=== PATIENT | male | born 1960 | race Caucasian/White ===

== ENCOUNTER 2018-06-18 14:00 | Outpatient (RCR) | payer MEDICAID, SELFPAY ==
--- NOTE | 2018-06-14 13:00 | PTTR_ITS ---
DATE: 06/14/18 SUBJECTIVE: Patient reports he is able to sleep better. His shoulders are still bothering him but have been doing better. The right is still worse than the left. States he went for a hike on Monday with no difficulty. OBJECTIVE: Therapeutic procedures ([id number]). [X] See flow sheet: Continued progressing scapular stabilization, rotator cuff, and arm strengthening program. [X] Provided skilled instruction in proper exercise performance: for proper body mechanics and postural awareness. [X] Provided skilled manual cues to facilitate proper muscle recruitment and/or movement pattern: Plan to give patient progression of home exercise for program for him to continue with at next session. Patient is leaving for vacation on June 20. Will have follow up appointment for reassessment after patient returns from vacation. Cryotherapy x 10 minutes post session to bilateral shoulders in sitting. Direct treatment time: 45 minutes Total treatment time: 55 minutes Meggan Garcia, SPT EMELIA Donnelly.
--- NOTE | 2018-06-18 14:00 | PTTR_ITS ---
DATE: 06/18/18 SUBJECTIVE: Patient reports he had some difficulty sleeping last night. He thinks he aggravated his shoulders carrying some heavy boxes yesterday. He is leaving for vacation to [place] tomorrow. OBJECTIVE: Therapeutic procedures ([id number]). [X] HEP review: Progressed HEP to include scapular stabilization and bilateral rotator cuff strengthening. Patient given green and orange theratubes for exercises. Reviewed all exercises with patient to ensure proper technique. Patient demonstrated understanding. [X] See flow sheet: Continued with scapular stabilization and rotator cuff strengthening program. [X] Provided skilled instruction in proper exercise performance: [X] Provided skilled manual cues to facilitate proper muscle recruitment and/or movement pattern: Plan to follow up in 2 weeks for reassessment and progression to independent self managment program. Cryotherapy x 10 minutes to bilateral shoulders post session. Direct treatment time: 45 minutes Total treatment time: 55 minutes Meggan Garcia, SPT Aislinn Valdivia, MPT
== END 2018-07-13 23:59 | disposition home or self-care (01) ==
LOC: PT 14:00
PROVIDERS: PCP Family Medicine; Referring Provider Specialist; Visit Provider Specialist
DX: M75.21 Bicipital tendinitis, right shoulder (principal); M75.22 Bicipital tendinitis, left shoulder; M75.101 Unspecified rotator cuff tear or rupture of right shoulder, not specified as traumatic
CPT/HCPCS: 97110

== ENCOUNTER 2018-09-17 18:40 | Outpatient (REF) | payer MEDICAID, SELFPAY ==
[2018-09-17 20:40] LABS: Cholesterol 194 mg/dL (50-200); Glucose 87 mg/dL (70-100); HDL Cholesterol 59 mg/dL (40-60); LDL CHOLESTEROL 123 mg/dL (<100); Triglyceride 54 mg/dL (30-150)
[2018-09-19 12:50] LABS: Hepatitis C Ab w Rflx HCV PCR Negative (NEGAT)
== END 2018-09-17 19:00 ==
LOC: NCHCN 18:40
PROVIDERS: PCP Family Medicine; Visit Provider Family Medicine
DX: Z13.1 Encounter for screening for diabetes mellitus (principal); Z13.220 Encounter for screening for lipoid disorders; Z11.59 Encounter for screening for other viral diseases; Z00.00 Encounter for general adult medical examination without abnormal findings
CPT/HCPCS: 80061; 82947; 83721; 86803

== ENCOUNTER 2018-11-13 15:31 | Emergency (ER) | payer MEDICAID, SELFPAY ==
[2018-11-13 15:34] VITALS: BP 100/78; PULSE 82; RESP 16; TEMP 36.5; O2SAT 98
--- NOTE | 2018-11-13 16:09 | W.ED.GENAD ---
Discharge Plan Disposition Patient Disposition: HOME Condition: Fair Discharge Details Chief Complaint: RespSymp Clinical Impression: Pneumonia, URI (upper respiratory infection) Primary Care Provider: Williams Aguayo ED Provider: Benita Silverman Home Meds and New Rx's Prescriptions: New azithromycin 250 mg tablet See Rx Instructions .ROUTE .COMPLEX Qty: 6 RF: 0 benzonatate [Tessalon Perles] 100 mg capsule 100 mg PO TID PRN (Reason: cough) Qty: 10 RF: 0 No Action No Known Home Meds RF: 0 Discharge Instructions Instructions: Pneumonia (ED) Additional Instructions: Encourage hydration. Take azithromycin as prescribed. You may use Tessalon Perles as prescribed to help with symptomatic management. Albuterol inhaler with spacer as advised by nursing staff every 4-6 hours as needed for develop wheezing or shortness of breath. Please keep upcoming appointment with primary care for reevaluation. If you develop new or worsening symptoms seek care urgently once again. Referrals: Williams Aguayo [Primary Care Provider] - Discharge Data Discharge Date/Time-TO BE ENTERED AT DEPARTURE: 11/13/18 17:40 Medical Decision Making Patient is a 58 year old male presentig today with c/c of cough x 2 weeks. States cough has been dry but that he feels wheezy and like there is junk in there. States he has had subjective fevers at home but none over the past 24 hours. Feels that cough has been worsening over the past few days and endorses SOB, primarily with cough. States that he initially had diarhea but that this has since subsided, has not had any over the past week. No nasea, vomiting or abdominal pain. Endorses sore throat but associates with cough. On exam, patient appears in no acute distress. He has faint expiratory wheezing in lower albert. Has crackles in RLL. Will obtain cxr and give albuterol inhaler. Discused plan with patient, he is in agreement iwht this plan. O2 98% on RA, no respiratory distress. HR 82, patien tis afebrile. Chest x-ray reviewed by radiologist. No airspace consolidation, pleural effusion or pneumothorax. Cardiomediastinal silhouette is unremarkable. Overall impression is no acute finding Discussed the findings with the patient. Has a symptoms have been worsening over the past 2 weeks and I do appreciate some consolidation in the right lower lobe, I am concerned for possible developing pneumonia. Will treat with azithromycin. Encouraged hydration. Also prescribed Tessalon Perles to help with symptomatic management. Patient was given an inhaler and spacer while here and was instructed in how to use this by nursing staff. We discussed new/worsening symptoms when to seek care urgently once again. Advise follow-up with primary care in 1 week, patient does have an appointment with them next week. All his questions and concerns were addressed and he is in agreement this plan HPI General Mode of arrival: ambulatory. Date/Time Provider Initiated Documentation: 11/13/18 15:52. Limitations to Documentation: no limitations. Information obtained by: patient. History of Present Illness 58 year old M presents to the emergency department with the chief complaint of cough, described as moderate, Patient started experiencing this week(s) (2) and it has been constant. No relieving factors improve symptom(s), No exacerbating factors reported . Patient notes cough, fever/chills and shortness of breath; denies chest pain, headaches, loss of appetite, nausea/vomiting, rash and syncope. Patient did receive the following treatments prior to arrival, none Related Data Home Medications Medication Instructions Recorded Confirmed Unknown [No Known Home Meds] 08/15/13 08/15/13 azithromycin See Rx Instructions .ROUTE 11/13/18 .COMPLEX #6 tab benzonatate [Tessalon Perles] 100 mg PO TID PRN #10 cap 11/13/18 Previous Rx's Medication Instructions Recorded azithromycin See Rx Instructions .ROUTE 11/13/18 .COMPLEX #6 tab benzonatate [Tessalon Perles] 100 mg PO TID PRN #10 cap 11/13/18 General Stated Complaint: RespSymp JUDITH: 4 Review of Systems Constitutional Reports as per HPI and Denies headache(s) Eyes Reports as per HPI, Denies eye discharge and Denies irritation ENT Reports as per HPI, Denies ear discharge, Denies otalgia, Denies headache(s), Reports nasal congestion, Reports nasal discharge, Denies sinus pain, Denies sinus pressure and Reports sore throat Cardiovascular Reports as per HPI, Denies chest pain, Reports dyspnea (with cough) and Denies dyspnea on exertion Respiratory Reports as per HPI, Reports cough, Denies pain on inspiration, Denies pain with cough, Reports dyspnea (with cough), Denies dyspnea on exertion, Denies stridor and Reports wheezing Gastrointestinal Reports as per HPI, Denies abdominal pain, Denies change in bowel habits, Denies nausea and Denies vomiting Integumentary/Breasts Reports as per HPI and Denies rash Neurologic Denies headache(s) Allergic/Immunologic Reports wheezing [facility], [facility] Social History Smoking/Tobacco Use Status: Never Exam Const General: cooperative, healthy appearing, comfortable, no acute distress, well developed and well groomed Nutritional Appearance: average body habitus and well nourished Orientation: alert and awake [facility] Head: normal to inspection, normocephalic and atraumatic Ears: hearing grossly normal bilaterally, external ears normal and TM's normal bilaterally General nose exam: external nose normal and nares normal Face and sinus: normal facial exam, sinuses nontender and face symmetric Mouth: oral mucosae normal, lip normal, tongue normal, oropharynx normal and moist mucous membranes Teeth and gingiva: dentition normal Throat: posterior oropharynx normal, tonsils normal and uvula midline Eyes General: appearance normal, both eyes and all related structures Neck Neck: normal visual inspection, full ROM, no lymphadenopathy and no meningeal signs Resp Effort & Inspection: normal respiratory effort, able to speak in complete sentences and no respiratory distress Auscultation: crackles on the right in the lower lung albert, no rales, no rhonchi and wheezes expiratory wheezes and scattered wheezes Cardio Rate: regular rate Rhythm: regular rhythm Heart Sounds: S1 normal and S2 normal Skin General skin exam: no rashes or lesions noted Neuro General: alert and awake Cognition: normal cognition Speech: speech normal Gait: normal gait Psych Appearance: grossly normal and well kempt Mental Status: mental status grossly normal Speech and Movement: speech and movement normal Course Vital Signs Temperature 36.5 C 11/13/18 15:34 Pulse 82 11/13/18 15:34 Respiratory Rate 16 11/13/18 15:34 Blood Pressure 100/78 11/13/18 15:34 Pulse Oximetry 98 11/13/18 15:34 Temperature 36.5 C 11/13/18 15:34 Temperature Source Skin 11/13/18 15:34 Pulse 82 11/13/18 15:34 Respiratory Rate 16 11/13/18 15:34 Blood Pressure 100/78 01/01/19 15:34 Blood Pressure Position Sitting 11/13/18 15:34 Pulse Oximetry 98 11/13/18 15:34 Oxygen Delivery Method Room Air 11/13/18 15:34 Oxygen Flow Rate 0 11/13/18 15:34
--- NOTE | 2018-11-13 16:17 | DI.RAD_ITS ---
SYMPTOM/DIAGNOSIS: COUGH, JUNKY IN RLL,FEVER, CHILLS PA AND LATERAL CHEST: Comparison is made with 05/19/17. The heart size is normal. The aorta is normal in diameter and mildly tortuous. The lungs are clear. IMPRESSION: Negative chest xray.
--- NOTE | 2018-11-13 16:21 | ED.GENADUL_ITS ---
Discharge Plan Disposition Patient Disposition: HOME Condition: Fair Discharge Details Chief Complaint: RespSymp Clinical Impression: Pneumonia, URI (upper respiratory infection) Primary Care Provider: Williams Aguayo ED Provider: Benita Silverman Home Meds and New Rx's Prescriptions: New azithromycin 250 mg tablet See Rx Instructions .ROUTE .COMPLEX Qty: 6 RF: 0 benzonatate [Tessalon Perles] 100 mg capsule 100 mg PO TID PRN (Reason: cough) Qty: 10 RF: 0 No Action No Known Home Meds RF: 0 Discharge Instructions Instructions: Pneumonia (ED) Additional Instructions: Encourage hydration. Take azithromycin as prescribed. You may use Tessalon Perles as prescribed to help with symptomatic management. Albuterol inhaler with spacer as advised by nursing staff every 4-6 hours as needed for develop wheezing or shortness of breath. Please keep upcoming appointment with primary care for reevaluation. If you develop new or worsening symptoms seek care urgently once again. Referrals: Williams Aguayo [Primary Care Provider] - Discharge Data Discharge Date/Time-TO BE ENTERED AT DEPARTURE: 11/13/18 17:40 Medical Decision Making Patient is a 58 year old male presentig today with c/c of cough x 2 weeks. States cough has been dry but that he feels wheezy and like there is junk in there. States he has had subjective fevers at home but none over the past 24 hours. Feels that cough has been worsening over the past few days and endorses SOB, primarily with cough. States that he initially had diarhea but that this has since subsided, has not had any over the past week. No nasea, vomiting or a bdominal pain. Endorses sore throat but associates with cough. On exam, patient appears in no acute distress. He has faint expiratory wheezing in lower albert. Has crackles in RLL. Will obtain cxr and give albuterol inhaler. Discused plan with patient, he is in agreement iwht this plan. O2 98% on RA, no respiratory distress. HR 82, patien tis afebrile. Chest x-ray reviewed by radiologist. No airspace consolidation, pleural effusion or pneumothorax. Cardiomediastinal silhouette is unremarkable. Overall impression is no acute finding Discussed the findings with the patient. Has a symptoms have been worsening over the past 2 weeks and I do appreciate some consolidation in the right lower lobe, I am concerned for possible developing pneumonia. Will treat with azithromycin. Encouraged hydration. Also prescribed Tessalon Perles to help with symptomatic management. Patient was given an inhaler and spacer while here and was instructed in how to use this by nursing staff. We discussed new/worsening symptoms when to seek care urgently once again. Advise follow-up with primary care in 1 week, patient does have an appointment with them next week. All his questions and concerns were addressed and he is in agreement this plan HPI General Mode of arrival: ambulatory . Date/Time Provider Initiated Documentation: 11/13/18 15:52 . Limitations to Documentation: no limitations . Information obtained by: patient . History of Present Illness 58 year old M presents to the emergency department with the chief complaint of cough, described as moderate, Patient started experiencing this week(s) (2) and it has been constant. No relieving factors improve symptom(s), No exacerbating factors reported . Patient notes cough, fever/chills and shortness of breath; denies chest pain, headaches, loss of appetite, nausea/vomiting, rash and syncope. Patient did receive the following treatments prior to arrival, none Related Data Home Medications Medication Instructions Recorded Confirmed Unknown [No Known Home Meds] 08/15/13 08/15/13 azithromycin See Rx Instructions .ROUTE 11/13/18 .COMPLEX #6 tab benzonatate [Tessalon Perles] 100 mg PO TID PRN #10 cap 11/13/18 Previous Rx's Medication Instructions Recorded azithromycin See Rx Instructions .ROUTE 11/13/18 .COMPLEX #6 tab benzonatate [Tessalon Perles] 100 mg PO TID PRN #10 cap 11/13/18 General Stated Complaint: RespSymp JUDITH: 4 Review of Systems Constitutional Reports as per HPI and Denies headache(s) Eyes Reports as per HPI, Denies eye discharge and Denies irritation ENT Reports as per HPI, Denies ear discharge, Denies otalgia, Denies headache(s), Reports nasal congestion, Reports nasal discharge, Denies sinus pain, Denies sinus pressure and Reports sore throat Cardiovascular Reports as per HPI, Denies chest pain, Reports dyspnea (with cough) and Denies dyspnea on exertion Respiratory Reports as per HPI, Reports cough, Denies pain on inspiration, Denies pain with cough, Reports dyspnea (with cough), Denies dyspnea on exertion, Denies stridor and Reports wheezing Gastrointestinal Reports as per HPI, Denies abdominal pain, Denies change in bowel habits, Denies nausea and Denies vomiting Integumentary/Breasts Reports as per HPI and Denies rash Neurologic Denies headache(s) Allergic/Immunologic Reports wheezing [facility] Social History Smoking/Tobacco Use Status: Never Exam Const General: cooperative, healthy appearing, comfortable, no acute distress, well developed and well groomed Nutritional Appearance: average body habitus and well nourished Orientation: alert and awake [facility] Head: normal to inspection, normocephalic and atraumatic Ears: hearing grossly normal bilaterally, external ears normal and TM's normal bilaterally General nose exam: external nose normal and nares normal Face and sinus: normal facial exam, sinuses nontender and face symmetric Mouth: oral mucosae normal, lip normal, tongue normal, oropharynx normal and moist mucous membranes Teeth and gingiva: dentition normal Throat: posterior oropharynx normal, tonsils normal and uvula midline Eyes General: appearance normal, both eyes and all related structures Neck Neck: normal visual inspection, full ROM, no lymphadenopathy and no meningeal signs Resp Effort & Inspection: normal respiratory effort, able to speak in complete sentences and no respiratory distress Auscultation: crackles on the right in the lower lung albert, no rales, no rhonchi and wheezes expiratory wheezes and scattered wheezes Cardio Rate: regular rate Rhythm: regular rhythm Heart Sounds: S1 normal and S2 normal Skin General skin exam: no rashes or lesions noted Neuro General: alert and awake Cognition: normal cognition Speech: speech normal Gait: normal gait Psych Appearance: grossly normal and well kempt Mental Status: mental status grossly normal Speech and Movement: speech and movement normal Course Vital Signs Temperature 36.5 C 11/13/18 15:34 Pulse 82 11/13/18 15:34 Respiratory Rate 16 11/13/18 15:34 Blood Pressure 100/78 11/13/18 15:34 Pulse Oximetry 98 11/13/18 15:34 Temperature 36.5 C 11/13/18 15:34 Temperature Source Skin 11/13/18 15:34 Pulse 82 11/13/18 15:34 Respiratory Rate 16 11/13/18 15:34 Blood Pressure 100/78 11/13/18 15:34 Blood Pressure Position Sitting 11/13/18 15:34 Pulse Oximetry 98 11/13/18 15:34 Oxygen Delivery Method Room Air 11/13/18 15:34 Oxygen Flow Rate 0 11/13/18 15:34
[2018-11-13] MEDS: Inhaler, Assist Device 1 EACH MC (16:28)
[2018-11-13] MEDS: Albuterol HFA 8 GM 60 PUFF INH IH (16:28)
--- NOTE | 2018-11-13 16:58 | DI.VRAD_ITS ---
EXAM: XR Chest, 2 Views EXAM DATE/TIME: 11/13/2018 4:18 PM CLINICAL HISTORY: 58 years old, male; Signs and symptoms; Other: Cough, junky in rll TECHNIQUE: XR of the chest, 2 views. COMPARISON: CR CHEST 2 VIEWS PA,LAT 05/19/2017 12:58 PM FINDINGS: No airspace consolidation, pleural effusion or pneumothorax. The cardiomediastinal silhouette is unremarkable. IMPRESSION: No acute findings. Dictated and Authenticated by: Robert Paige MD. Ordering:FELICITAS Joy MD
[2018-11-13 17:22] VITALS: BP 101/74; PULSE 78; RESP 16; O2SAT 98
[2018-11-13] MEDS: Azithromycin 250 MG TAB 500 MG PO (17:30)
[2018-11-13] MEDS: Benzonatate 100 MG CAP 300 MG PO (17:30)
== END 2018-11-13 17:40 | disposition home or self-care (01) ==
PROVIDERS: Emergency Provider Physician Assistant; PCP Family Medicine
DX: J18.9 Pneumonia, unspecified organism (principal); J06.9 Acute upper respiratory infection, unspecified
CPT/HCPCS: 99284; 71046

== ENCOUNTER 2021-10-06 20:35 | Outpatient (REF) | payer MEDICAID, SELFPAY ==
[2021-10-06 20:34] LABS: Hemoglobin A1C 5.3 % (<5.7)
[2021-10-06 20:39] LABS: Calculated LDL 132 mg/dL (<100); Cholesterol 226 mg/dL (<200); HDL Cholesterol 70 mg/dL (40-60); Triglyceride 122 mg/dL (<150)
[2021-10-11 11:01] LABS: HIV-1/2 Ag & Ab Screen Negative (Negative)
== END 2021-10-06 20:36 | disposition home or self-care (01) ==
LOC: NCHCN 20:35
PROVIDERS: PCP Family Medicine; Visit Provider Family Medicine
DX: Z00.8 Encounter for other general examination (principal); Z11.4 Encounter for screening for human immunodeficiency virus [HIV]
CPT/HCPCS: 80061; 87389; 83036

== ENCOUNTER 2022-08-10 10:17 | Day surgery (SDC) | payer MEDICAID, SELFPAY ==
--- NOTE | 2022-08-10 06:38 | HPE_ITS ---
Assessment and Plan Assessment and plan (1) Screening for colon cancer: Status: Acute Assessment and plan: The patient is here for Colonoscopy pre-op. His last screening was in 2009 and was unremarkable. He has no family history of colon cancer. He has not had any bowel habit changes. -Discussed colonoscopy bowel prep as well as the procedure. Discussed possible complications of the procedure to include bleeding, pain, perforation, missed small lesion/polyp, sore throat, aspiration and adverse reaction to the medications. Questions were answered to patient?s satisfaction. No guarantees were implied or given.? P// Colonoscopy under sedation . History of Present Illness Narrative: 62 y/o male with a benign medial history presents for colonoscopy screening pre- op. His last screening was in 2009, which was unremarkable. He denies a family history of colon cancer. He denies any changes in bowel habits including bloody or black tarry stools, abdominal pain, diarrhea or constipation. He denies constitutional symptoms. Denies use of marijuana or any other recreational or illegal drugs. He denies chest pain, palpitations, dyspnea or dyspnea with exertion. He denies prior history or family history of adverse reactions or complications with anesthesia. The patient denies any history of stroke, MD, seizures, bleeding or clotting disorders. He denies having any implanted metal in his body. No changes in his health since he was last seen Review of Systems All systems reviewed & are unremarkable except as noted in HPI and below PFSH All Active Problems Screening for colon cancer (Acute) Overweight (Acute) Medical History Keloid Lumbar facet joint pain Osteoarthritis of left knee Rib pain on right side Rosacea Shoulder tendonitis Trochanteric bursitis Surgical History (Updated 08/10/22 @ 11:11 by Ivet Domingo RN) S/P left knee arthroscopy x2. Dr. Benton and Dr. Enciso Social History Smoking/Tobacco Use Status: Never Smoking risk assessment performed?: Yes Alcohol Intake: never Drug use: Never Substance use type: does not use Do you feel safe at home: Yes Do you feel safe in your relationship?: Yes Meds Allergies and Home Medications Allergies Allergy/AdvReac Type Severity Reaction Status Date / Time No Known Allergies Allergy Verified 08/10/22 11:11 Home Medications Medication Instructions Recorded Confirmed Type diclofenac sodium 1 % topical gel 2 g topical BID 10/21/21 08/10/22 History (Arthritis Pain (diclofenac)) bisacodyl 5 mg tablet,delayed 5 mg PO ONCE #4 tabs 07/07/22 08/10/22 Rx release (Dulcolax (bisacodyl)) polyethylene glycol 3350 17 17 g PO ONCE #238 grams 07/07/22 08/10/22 Rx gram/dose oral powder Exam Const General: comfortable and no acute distress HENUT Head: normocephalic and atraumatic Resp Effort & Inspection: normal respiratory effort Auscultation: clear to auscultation bilaterally Cardio Rate: regular rate Rhythm: regular rhythm
--- NOTE | 2022-08-10 06:39 | W.COLOREPORT ---
Colonoscopy Report Date of procedure: 08/10/22 Pre-op diagnosis general: colon Cancer screening Post-op diagnosis procedure note: other (polyp) Procedure: Colonoscopy with polypectomy Surgeon: Rosey Lord Anesthesia Type: General:No Airway Estimated blood loss (mL): 2 Pathology: other (transverse polyp) Complications: None Disposition: same day Indications: The patient is here for Colonoscopy pre-op. His last screening was in 2009 and was unremarkable. He has no family history of colon cancer. He has not had any bowel habit changes. -Discussed colonoscopy bowel prep as well as the procedure. Discussed possible complications of the procedure to include bleeding, pain, perforation, missed small lesion/polyp, sore throat, aspiration and adverse reaction to the medications. Questions were answered to patient?s satisfaction. No guarantees were implied or given.? Prep: Miralax/Dulcolax Procedure Start Time: 11:43 Procedure End Time: 11:59 Retraction Time: 8 minutes Findings: One polyp Procedure Description: After informed consent was obtained the patient was taken to the procedure room and placed in a left decubitous position. Monitors were applied and a time out was done. The patients name, date of , procedure, allergies to medications and metal in their body was reviewed. The patient was then sedated. Once sedated and comfortable a rectal exam was done. External exam was normal. Internal exam revealed a normal sphincter tone and no palpable masses. The prostate felt smooth. The scope was then introduced and retro-flexed. No internal hemorrhoids, polyps or masses were identified on retro-flexion. The scope was then advanced to the cecum without difficulty. The ileocecal vlave and appendiceal orifice were identified. The prep was adeuqate. The scope was then slowly retracted over 8 minutes back into the rectum. Polyps were removed with cold forceps in the transverse colon. There was no diverticulosis noted. The scope was removed and the patient was woken up and taken back to Same day surgery in stable condition. The patient tolerated the procedure well and there were no immediate complications.
--- NOTE | 2022-08-10 06:40 | W.PM.DSUDISC ---
Discharge Plan Disposition Patient Disposition: HOME Condition: Good Discharge Details Reason For Visit: colonoscopy Attending Provider: Rosey Lord Primary Care Provider: Williams Aguayo Home Meds and New Rx's Prescriptions: Continued diclofenac sodium [Arthritis Pain (diclofenac)] 1 % gel 2 g topical BID Rx Instructions: apply to single elbow, wrist or hand; for hand includes palm/fingers/back of hand Discontinued bisacodyl [Dulcolax (bisacodyl)] 5 mg tablet,delayed release (DR/EC) 5 mg PO ONCE Qty: 4 0RF Rx Instructions: Take according to provider's instructions for colonoscopy prep. polyethylene glycol 3350 17 gram/dose powder 17 g PO ONCE Qty: 238 0RF Rx Instructions: To be taken as directed by prescriber's office for colonoscopy prep. Discharge Instructions Instructions: Colorectal Polyps (DC) Additional Instructions: Findings: one polyp Follow up: most likely 5 years Please call if you develop: fevers >101.5 Nausea or Vomiting Abdominal pain that is not transient Rectal bleeding that is more then a tbsp A hard abdomen and inability to pass gas DAY SURGERY UNIT POST ENDOSCOPY INSTRUCTIONS Instructions for everyone who is given Anesthesia: For your safety, please do the following for the next 24 Hours: a. Do not drive or operate dangerous equipment b. Do not drink alcohol beverages or use any recreational drugs for the first 24 hours or while taking pain medications. The medications in your body may have a reaction that can be dangerous. c. Do not make any important decisions or sign any important papers 1. Generally there are no restrictions on your activity after a day or so has gone by, but you may feel a bit fatigued for a few days. 2. After you arrive home you may have a light meal and return to a normal diet as you can tolerate it without feeling sick to your stomach. 3. After surgery, you may feel pain or discomfort. This should be only transient, but if it persists please contact your doctor. 4. If there are any questions regarding the findings of your procedure, please feel free to contact your doctor. 6. If you are unable to contact your doctor with a problem, contact the hospital at [phone]. 7. Continue all your regular medications unless directed otherwise. I understand the above instructions and have no questions. Signature of Patient or Responsible Adult Escort Date/Time Name of Responsible Adult Escort Signature of Nurse Date/Time Activity:: Activity as Tolerated Diet:: As Tolerated Discharge Orders Discharge Orders: Discharge Order (Routine); Ordered 08/10/22 Ordered By: Rosey Lord DS: Diagnosis Discharge Diagnosis (1) Screening for colon cancer: Status: Acute
[2022-08-10 10:23] VITALS: BP 123/86; PULSE 67; RESP 16; TEMP 36.8; O2SAT 99
[2022-08-10] MEDS: Lactated Ringers 1,000 ML 80 ML IV (11:20)
--- NOTE | 2022-08-10 11:28 | W.ANESPRE ---
General Info Date of Service Date Performed: 08/10/22 Height: 6 ft Weight: 81 kg Body Mass Index (BMI): 24.2 Surgical Procedure: Operation Date: 08/10/22 12:35 Proposed Procedure Side Surgeon p Colonoscopy Rosey Lord MD Actual Procedure Side Surgeon p Colonoscopy Not Applicable Rosey Lord MD Pre-Op Diagnosis Post-Op Diagnosis colonoscopy colonoscopy Meds Allergies and Home Medications Allergies Allergy/AdvReac Type Severity Reaction Status Date / Time No Known Allergies Allergy Verified 08/10/22 11:11 Home Medication Medication Instructions Recorded diclofenac sodium 1 % topical gel 2 g topical BID 10/21/21 (Arthritis Pain (diclofenac)) bisacodyl 5 mg tablet,delayed 5 mg PO ONCE #4 tabs 07/07/22 release (Dulcolax (bisacodyl)) polyethylene glycol 3350 17 17 g PO ONCE #238 grams 07/07/22 gram/dose oral powder Current Visit Medications: Current Medications Generic Name Dose Route Start Last Admin Trade Name Freq PRN Reason Stop Dose Admin Hyoscyamine Sulfate 0.125 mg 08/10/22 06:41 Hyoscyamine 0.125 Mg Sl/Oral/Chew SL DIRECTED PRN Ringer's Solution 1,000 mls @ 80 mls/hr 08/10/22 06:00 IV 09/08/22 23:59 INFUSION [facility] IV Miscellaneous Supplies 1 each 08/10/22 06:00 Iv Access IV 09/08/22 23:59 DIRECTED ALAYNA Ondansetron HCl 4 mg 08/10/22 06:41 Ondansetron 4 Mg/2 Ml Vial IVP Q4H PRN PRN Nausea / Vomiting Sodium Chloride 0 ml 08/10/22 06:00 Normal Saline Flush 10 Ml Syr IV 09/08/22 23:59 PRN PRN Sodium Chloride 0 ml 08/10/22 06:00 Normal Saline 10 Ml Vial IJ 09/08/22 23:59 DIRECTED PRN Sterile Water 0 ml 08/10/22 06:00 Water,Injection,Sterile 10 Ml Vial IJ 09/08/22 23:59 DIRECTED PRN PFSH Active Problems Active Problems: Problem Status Onset Code Screening for colon cancer Z12.11 Overweight E66.3 Medical History Medical History Keloid Lumbar facet joint pain Osteoarthritis of left knee Rib pain on right side Rosacea Shoulder tendonitis Trochanteric bursitis Surgical History Surgical History (Updated 08/10/22 @ 11:11 by Ivet Domingo RN) S/P left knee arthroscopy x2. Dr. Benton and Dr. Enciso Tobacco Smoking/Tobacco Use Status: Never Alcohol Alcohol Intake: never Substance Use Substance use: Never Substance use type: does not use Vital Signs and Lab Results Vital Signs Most Recent Vital Signs in EMR: Most Recent Vital Signs Temp Pulse Resp BP Pulse Ox 36.8 C 67 16 123/86 99 08/10/22 10:23 08/10/22 10:23 08/10/22 10:23 08/10/22 10:23 08/10/22 10:23 Lab Results Blood Type / Crossmatch: No Data to Display Complete Blood Count: No Data to Display Complete Metabolic Panel: No Data to Display Liver Function Panel: No Data to Display Coagulation Panel: No Data to Display Cardiac Panel: No Data to Display Arterial Blood Gas: No Data to Display Venous Blood Gas: No Data to Display Pancreas Panel: No Data to Display Thyroid Panel: No Data to Display Infectious Disease: No Data to Display Blood Cultures: No Data to Display Toxicology Panel: No Data to Display Anesthesia Assessment and Plan Anesthesia History Personal History: No History of Anesthesia Complications Family History: No Family History of Anesthesia Complications Exercise Tolerance Exercise Tolerance: Metabolic Equivalents>4 Pertinent Negatives Pertinent Negatives: No Symptoms of GERD, No Major Cardiovascular Symptoms or Complaints, No Major Pulmonary Symptoms or Complaints and No History of CVA/TIA Cardiac & Pulmonary Exam Cardiac Exam: Normal S1/S2 Heart Sounds Pulmonary Exam: Clear Bilateral Breath Sounds Implantable Cardiac Device Does patient have a Pacemaker or an ICD?: No Airway Exam Known Difficult Airway: No Mallampati Class: 1 Mouth Opening: Normal (> 3cm) Thyromental Distance: Greater than 3 cm Neck Range of Motion: Full ROM Neck Circumference: Normal Teeth Condition: Normal Dentition and Removable Dentures/Plates Upper ASA Classification ASA Score: ASA 2 Emergency Case?: No NPO Status NPO Status: NPO Clears >2 hours, Solids >8 hours Anesthesia Plan Resuscitation Status: Full Code Anesthesia Technique: General Anesthesia Airway Planned: Natural Airway Monitors Used: Standard Monitors
[2022-08-10 11:30] VITALS: BMI 24.2
--- NOTE | 2022-08-10 11:50 | BOWEL_PTH ---
PATIENT: Jonas Mendoza LOC: [facility] U#:[id number] AGE/SX: 62/M ROOM: RE08/10/[address]: Rosey Lord MD : 1960 BED: DIS: 08/10/2022 SPEC #: [id number] RECD: 08/10/22 12:47 STATUS: VÍCTOR REQ #: [id number] ANURAG: 08/10/22 11:[address]: Rosey Lord DEPT: Surgical Specimen RECD BY: Estelita Barrientos ENTERED: 08/10/22 12:48 SP TYPE: Bowel OTHR DR: Williams Aguayo Tissues: 1 - BIOPSY BOWEL Procedures: GROSS AND MICRO LEVEL 4 Comments: [id number]
[2022-08-10 12:11] VITALS: BP 108/81; PULSE 67; RESP 14; TEMP 37; O2SAT 94
--- NOTE | 2022-08-10 12:25 | W.ANESPOSTOP ---
Postoperative Evaluation Date, Time and Location Date Performed: 08/10/22 Time Performed: 12:25 Patient Location: Day Surgery Unit Vital Signs Most Recent Imported Vital Signs: Most Recent Vital Signs Temp Pulse Resp BP Pulse Ox 37.0 C 67 14 108/81 94 08/10/22 12:11 08/10/22 12:11 08/10/22 12:11 08/10/22 12:11 08/10/22 12:11 Pain Score Most Recent Pain Score: Most Recent Pain Score Pain Level 0 08/10/22 12:11 Assessment Mental Status: Awake (Alert & Oriented to Patient Baseline) Airway and Respiratory Function: Patent airway with normal (patient baseline) respiratory exam Cardiovascular Function: Hemodynamically Stable Hydration Status: Adequately Hydrated Nausea & Vomiting: No Nausea or Vomiting Pain: Pt. Denies Any Pain Peripheral Nerve Block: Patient did not receive a nerve block
[2022-08-10 12:52] VITALS: BP 127/79; PULSE 59; RESP 18; TEMP 36.6; O2SAT 100
== END 2022-08-10 13:33 | disposition home or self-care (01) ==
PROVIDERS: PCP Family Medicine; Visit Provider Surgery
PROC: 0DJD8ZZ Inspection of Lower Intestinal Tract, Via Natural or Artificial Opening Endoscopic (ICD-10-PCS; CPT 45378; principal; 2022-08-10 12:30)
DX: Z12.11 Encounter for screening for malignant neoplasm of colon (principal); K63.5 Polyp of colon
CPT/HCPCS: 45380; 88305

== ENCOUNTER 2023-02-02 17:49 | Outpatient (CLI) | payer MEDICAID, SELFPAY ==
--- NOTE | 2023-02-02 18:30 | DI.RAD_ITS ---
Exam(s) XR RIBS RT W PA LAT CHEST EXAM: XR RIBS RT W PA LAT CHEST CLINICAL HISTORY: evaluate fx TECHNIQUE: 2D digital imaging was performed.Four images were obtained. COMPARISON: CR XR CHEST 2V PA LATERAL from 11/13/2018 FINDINGS: MEDIASTINUM: Normal. HEART: Normal. PULMONARY VASCULATURE: Normal. LUNGS: Clear. PLEURAL SPACE: No pleural effusion or pneumothorax. BONE:Normal. RIGHT RIBS: Normal. OTHER FINDINGS:Normal. IMPRESSION: 1. No acute pulmonary findings. 2. Unremarkable right ribs. DATA REPOSITORY: RADIATION DOSE DELIVERED:
--- NOTE | 2023-02-02 18:39 | DI.VRAD_ITS ---
PROCEDURE INFORMATION: Exam: XR Right Ribs Exam date and time: 02/02/2023 18:21 Age: 62 years old Clinical indication: Other: Evaluate FX TECHNIQUE: Imaging protocol: Radiologic exam of the right ribs. Views: 2 views. COMPARISON: CR XR CHEST 2V PA LATERAL 11/13/2018 16:29 FINDINGS: Bones/joints: No acute fracture is seen with attention to the right-sided ribs. Soft tissues: Normal. IMPRESSION: No acute fracture is seen with attention to the right-sided ribs. PROCEDURE INFORMATION: Exam: XR Chest Exam date and time: 02/02/2023 18:21 Age: 62 years old Clinical indication: Other: Evaluate FX TECHNIQUE: Imaging protocol: Radiologic exam of the chest. Views: 2 views. COMPARISON: CR XR CHEST 2V PA LATERAL 11/13/2018 16:29 FINDINGS: Lungs: Mild hyperinflation without airspace consolidation. Pleural spaces: No pleural effusion. No pneumothorax. Heart/Mediastinum: No cardiomegaly. Bones/joints: No acute fracture. IMPRESSION: Mild hyperinflation without airspace consolidation. Dictated and Authenticated by: Nelida Valentine MD. Ordering:TUAN Sandoval MD
== END 2023-02-02 18:09 ==
PROVIDERS: PCP Family Medicine; Visit Provider Nurse Practitioner Family
DX: R07.89 Other chest pain (principal); R07.81 Pleurodynia
CPT/HCPCS: 71046; 71100

== ENCOUNTER 2023-02-13 11:07 | Outpatient (CLI) | payer MEDICAID, SELFPAY ==
--- NOTE | 2023-02-13 11:00 | DI.RAD_ITS ---
Exam(s) XR HIP RT COMPLETE AP PELVIS EXAM: XR HIP RT COMPLETE AP PELVIS CLINICAL HISTORY: RIGHT HIP PAIN. TECHNIQUE: 2D digital imaging was performed. COMPARISON: No exams were available for comparison FINDINGS: Two views: No fractures nor degenerative changes in the hips. Additional lateral view of the right hip reveals no osteophytes nor joint space narrowing. Bone density normal. No osseous lesions. IMPRESSION: No significant osseous findings. DATA REPOSITORY: RADIATION DOSE DELIVERED:
== END 2023-02-13 11:08 | disposition home or self-care (01) ==
LOC: DIORS 11:08
PROVIDERS: PCP Family Medicine; Referring Provider Family Medicine; Visit Provider Student in an Organized Health Care Education/Training Program
DX: M25.551 Pain in right hip (principal)
CPT/HCPCS: 73502

== ENCOUNTER 2023-04-05 02:43 | Outpatient (CLI) | payer MEDICAID, SELFPAY ==
--- NOTE | 2023-04-05 06:45 | DI.MRI_ITS ---
Exam(s) MR LOWER JOINT RT WO EXAM: MR LOWER JOINT RT WO CLINICAL HISTORY: right hip pain,TROCHANTERIC BURSITIS, RT HIP, M70.61 TECHNIQUE: Multiplanar multisequence MRI of the hip was performed. COMPARISON: CR XR HIP RT COMPLETE AP PELVIS from 02/13/2023 FINDINGS: MARROW:There is no evidence of fracture, bone contusion, nor avascular necrosis. There are no signif icant osseous lesions.There is no significant osseous excrescence at the femoral head-neck junction t o suggest the presence of cam-type SEFERINO. EFFUSION: There is no evidence of joint effusion. BURSAE: There is no evidence of trochanteric bursitis. There is no evidence of iliopsoas bursitis. HIP JOINT SPACE: Mild cartilage loss over the anterior superior aspect.There is no hypertrophy of the ligamentum teres nor signal abnormality at the fovea centralis. LABRUM: Mild signal abnormality. No distinct tear. No evidence of paralabral cyst. ISCHIAL TUBEROSITY/HAMSTRING: There is no abnormal intraosseous signal in the ipsilateral ischial tub erosity nor tear of the common hamstrings tendon attachment site at this level. OTHER: There is no abnormal intramuscular signal within the quadratus femoris to suggest the presence of impingement syndrome at this level. Incidentally noted is sigmoid diverticulosis. IMPRESSION: 1. There are mild degenerative changes in the hip joint. No joint effusion. No evidence of osteonec rosis/AVM nor evidence of stress fracture. 2. No evidence of tendon tears nor bursitis. 3. Sigmoid diverticulosis incidentally noted DATA REPOSITORY:
== END 2023-04-05 03:03 ==
PROVIDERS: PCP Family Medicine; Visit Provider Student in an Organized Health Care Education/Training Program
DX: M70.61 Trochanteric bursitis, right hip (principal); M76.891 Other specified enthesopathies of right lower limb, excluding foot; K57.30 Diverticulosis of large intestine without perforation or abscess without bleeding
CPT/HCPCS: 73721

== ENCOUNTER 2023-05-08 13:51 | Outpatient (CLI) | payer MEDICAID, SELFPAY ==
--- NOTE | 2023-05-08 13:44 | DI.RAD_ITS ---
Exam(s) XR KNEE LT 3V AP,LAT,LONNIE EXAM: XR KNEE LT 3V AP,LAT,LONNIE CLINICAL HISTORY: L knee pain. TECHNIQUE: 2D digital imaging was performed of the left knee. Three images were obtained. AP, late ral and PA tunnel views were obtained. COMPARISON: CR LEFT KNEE 3 VIEW COMPLETE from 09/14/2010 FINDINGS: BONES: No acute fracture is present. No bony destructive lesion is seen. JOINTS: The knee is normally aligned. There is a small joint effusion. There is mild spurring of the posterior patella and the medial femoral tibial joint. There is mild narrowing of the medial femora l tibial joint. SOFT TISSUE: Normal. IMPRESSION: Mild degenerative changes of the left knee and small joint effusion. DATA REPOSITORY: RADIATION DOSE DELIVERED:
== END 2023-05-08 13:52 | disposition home or self-care (01) ==
LOC: DIORS 13:52
PROVIDERS: PCP Family Medicine; Referring Provider Family Medicine; Visit Provider Physician Assistant
DX: M17.12 Unilateral primary osteoarthritis, left knee (principal); M25.462 Effusion, left knee
CPT/HCPCS: 73562

== ENCOUNTER 2023-10-09 15:49 | Outpatient (REF) | payer MEDICAID, SELFPAY ==
[2023-10-09 19:09] LABS: Calculated LDL 120 mg/dL (<100); Cholesterol 214 mg/dL (<200); HDL Cholesterol 48 mg/dL (40-60); Triglyceride 231 mg/dL (<150)
== END 2023-10-09 15:50 | disposition home or self-care (01) ==
LOC: NCHCN 15:49
PROVIDERS: PCP Family Medicine; Visit Provider Family Medicine
DX: Z13.6 Encounter for screening for cardiovascular disorders (principal)
CPT/HCPCS: 80061

== ENCOUNTER 2023-10-25 15:54 | Outpatient (CLI) | payer MEDICAID, SELFPAY ==
[2023-10-25 16:05] VITALS: BP 122/85; PULSE 73; RESP 20; TEMP 36.8; O2SAT 97
--- NOTE | 2023-10-25 16:15 | DI.RAD_ITS ---
Exam(s) XR PAIN CLINIC SACRIOILIAC 2V EXAM: XR PAIN CLINIC SACRIOILIAC 2V CLINICAL HISTORY: Dx: Ischiogluteal Bursitis TECHNIQUE: 2D and realtime digital imaging was performed. CONTRAST MATERIAL: Refer to procedure report. COMPARISON: No exams were available for comparison FINDINGS: Fluoroscopy was provided for Dr. Vivas during the performance of a treatment for ischial gluteal burs itis. Please refer to the procedure report for complete details. Ka,r=2.7 mGy IMPRESSION:
--- NOTE | 2023-10-25 16:54 | PDOC.PAIN_ITS ---
Date of service: 10/25/23 Time of Service: 16:54 Pain Managment Procedure Note Procedure Note Procedure Note: PROCEDURE NOTE RIGHT ISCHIOGLUTEAL BURSA INJECTION Date of Service: October 25, 2023 Patient:Jonas Guerin? Provider:? Moisés Vivas DO, MPH Jonas Mendoza has been referred to the [facility] for RIGHT ishchiogluteal bursa injection. Pre-operative diagnosis: right ischiogluteal bursitis Post-operative diagnosis: Same Pre-Procedure Pain: VAS= 7/10 COMMENTS: He was sent by his orthopedic surgeon directly for this procedure. Justinwas interviewed and the medical record was reviewed.? There were no medical, pharmacologic, radiographic or other structural contraindications to attempting fluoroscopically guided RIGHT Ischiogluteal bursa injection.? Risks and expected side effects as well as potential benefit of the procedure were reviewed with Jonas, and voiced concerns were addressed.? The printed consent form was signed.? Standard time-out procedure was performed. Jonas was placed in the prone position on the fluoroscopy table with pulse oximeter applied. The skin entry point for approaching inferior aspect of the ischial tuberosity was identified under the most advantageous fluoroscopic view and marked. Following thorough Chlorhexadine preparation of the skin and draping, 1% lidocaine infiltration of the skin entry point and subcutaneous tissues was accomplished. Next a 22 gauge 3.5 inch spinal needle was placed under fluoroscopic guidance to the RIGHT ischial tuberosity. Intra-bursa placement was confirmed by a clear bursogram resulting from the injection of 1 ml Omnipaque 240. 3 ml of 1 %Lidocaine and 80mg Depo-Medrol was injected intra- bursally with an initial reproduction of a significant component of the usual pain. 1 ml of 1% Lidocaine was then flushed through the needle and the needle was then removed without difficulty. (49 ml of Omnipaque was wasted). There was no unusual discomfort expressed by Jonas. The needle was withdrawn without difficulty. Jonas was observed and was without hemodynamic, neurologic, or allergic reactions.? Fluoroscopic images were digitally archived. Jonas's vital signs were stable throughout the procedure and were as recorded in the docflowsheet by the nursing staff. If given, dosages of intravenous drugs for anxiolysis and analgesia were documented in MAR. Follow up plans and appointments were discussed with Jonas. Post procedure instruction was given as documented in nursing documentation and having met discharge criteria, [facility] COMMENTS: No apparent complications. Post-procedure pain: VAS= 4/10. Jonas to contact [facility] as needed. If at least 50% improvement in pain and/or function for at least 3 months is achieved, this procedure can be repeated. I personally completed the entire procedure. MOISÉS VIVAS DO, MPH ABPM&R - Subspecialty board certification in Pain Medicine [facility] [facility]
[2023-10-25 17:00] VITALS: PULSE 71; O2SAT 99
[2023-10-25] MEDS: Lidocaine 2% Pres-Free 5 ML VIAL IJ (17:02)
[2023-10-25] MEDS: Omnipaque 240 MG/ML 50 ML BTL IJ (17:02)
[2023-10-25] MEDS: methylPREDNISolone ACETATE 40 MG/ML VIAL IJ (17:03)
== END 2023-10-25 15:55 | disposition home or self-care (01) ==
LOC: PC 15:54
PROVIDERS: PCP Family Medicine; Visit Provider Preventive Medicine Occupational Medicine
DX: M70.71 Other bursitis of hip, right hip (principal)
CPT/HCPCS: 00123; 20610; 72200; J1030; Q9967

== ENCOUNTER 2024-02-28 14:25 | Outpatient (CLI) | payer MEDICAID, SELFPAY ==
[2024-02-28 15:23] VITALS: BP 125/77; PULSE 67; RESP 20; TEMP 36.7; O2SAT 95
--- NOTE | 2024-02-28 15:45 | DI.RAD_ITS ---
Exam(s) XR PAIN CLINIC FLUORO JOINT IN EXAM: XR PAIN CLINIC FLUORO JOINT IN CLINICAL HISTORY: Dx: Osteoarthritis of the knee TECHNIQUE: 2D and realtime digital imaging was performed. CONTRAST MATERIAL: Refer to procedure report. COMPARISON: No exams were available for comparison FINDINGS: Fluoroscopy was provided for Dr. Vivas during the performance of a left genicular nerve block. Brooks blanco refer to the procedure report for complete details. Ka,r=1.84 mGy IMPRESSION: RADIATION DOSE DELIVERED: 0.0 0.0 0
--- NOTE | 2024-02-28 16:30 | PDOC.PAIN ---
Date of service: 02/28/24 Time of Service: 16:30 Pain Managment Procedure Note Procedure Note Procedure Note: PROCEDURE NOTE LEFT GENICULAR NERVE BLOCKS Date of Service: February 28, 2024 Patient: Jonas Mendoza Provider: Moisés Vivas DO, MPH Jonas Mendoza has been referred to the [facility] for Left genicular nerve block. Pre-operative diagnosis: Pain in left knee M25.562 Post-operative diagnosis: Same Pre-Procedure Pain: VAS=7/10 COMMENTS: We initially were planning a right ischiogluteal bursa injection, but the patient wanted to flip flop the bursa injection and the left Genicular nerve block. PROCEDURE: 1. Block of the Superolateral genicular branch from the vastus lateralis 2. Block of the Superomedial genicular branch from the vastus medialis 3. Block of the Inferomedial genicular branch from the saphenous nerve 4. Block of the Terminal branch of the nerve vastus intermedius Jonas was interviewed and the medical record reviewed. There were no medical, pharmacologic, radiographic or other structural contraindications to attempting fluoroscopically guided Left genicular nerve block. Risks and potential side effects as well as potential benefit of the procedure were reviewed with Jonas Mendoza , and the patient's voiced concerns were addressed. After I believed that the patient was completely informed, the printed consent form was signed. Standard time-out procedure was performed. After a thorough Chlorhexadine preparation of the skin and draping the skin entry points for approaching Left superolateral genicular nerve, the superomedial genicular nerve, nerve of the vastus intermedius and the inferomedial genicular was identified under the most advantageous fluoroscopic view and marked. Next, 3.5 25G spinal needle was advanced to os at the location of the specific nerve root using fluoroscopic guidance. Next 0.5 cc of 0.5% Bupivacain was injected at each site. There was no unusual discomfort expressed by Jonas. The needles were withdrawn without difficulty. Jonas was observed and was without hemodynamic, neurologic, or allergic reactions.? Fluoroscopic images were digitally archived. Jonas's vital signs were stable throughout the procedure and were as recorded in the docflowsheet by the nursing staff. If given, dosages of intravenous drugs for anxiolysis and analgesia were documented in MAR. Follow up plans and appointments were discussed. Jonas was instructed to keep careful note of how the usual pain was modified by these injections. Specifically, Jonas was asked to keep a pain diary for the next 4 hours using a numeric pain scale of 0-10 and report these results. Post procedure instruction was given as documented in nursing documentation and having met discharge criteria, Jonas was discharged from the [facility]. COMMENTS: No apparent complications. Post-procedure pain: VAS= 5/10. Jonas will call back with 0-4 hour post-procedure pain scores. I personally completed the entire procedure. MOISÉS VIVAS DO, MPH ABPM&R - Subspecialty board certification in Pain Medicine [facility]
[2024-02-28 16:44] VITALS: PULSE 65; O2SAT 99
[2024-02-28] MEDS: Bupivacaine 0.5% Pres-Free 10 ML VIAL IJ (16:46)
[2024-02-28] MEDS: Omnipaque 240 MG/ML 50 ML BTL IJ (16:46)
[2024-02-28] MEDS: Nerve Block Tray 1 EACH MC (16:46)
== END 2024-02-28 14:26 | disposition home or self-care (01) ==
LOC: PC 14:26
PROVIDERS: PCP Family Medicine; Visit Provider Preventive Medicine Occupational Medicine
DX: M25.562 Pain in left knee (principal)
CPT/HCPCS: 64454; 77002; J0665; Q9967

== ENCOUNTER 2024-03-13 12:48 | Outpatient (CLI) | payer MEDICAID, SELFPAY ==
--- NOTE | 2024-03-13 06:00 | DI.RAD_ITS ---
Exam(s) XR PAIN CLINIC FLUORO JOINT IN EXAM: XR PAIN CLINIC FLUORO JOINT IN CLINICAL HISTORY: Dx: Ischial Bursitis Right Hip TECHNIQUE: 2D and realtime digital imaging was performed. Radiologist not present. CONTRAST MATERIAL: None. COMPARISON: No exams were available for comparison FINDINGS: Fluoroscopy was provided for pain management therapy. Please refer to procedure report or details. Radiation Exposure Index: Ka,r=4.28 mGy IMPRESSION: As above. RADIATION DOSE DELIVERED:
[2024-03-13 14:00] VITALS: BP 140/94; PULSE 77; RESP 20; TEMP 36.7; O2SAT 97
--- NOTE | 2024-03-13 15:06 | PDOC.PAIN_ITS ---
Date of service: 03/13/24 Time of Service: 15:06 Pain Managment Procedure Note Procedure Note Procedure Note: PROCEDURE NOTE RIGHT ISCHIOGLUTEAL BURSA INJECTION Date of Service: March 13, 2024 Patient: Jonas Mendoza Provider: Moisés Vivas DO, MPH COMMENTS: I previously evaluated the patient in the office and their symptoms in relation to the right buttock pain have remained the same. Pre-operative diagnosis: Right ischiogluteal bursitis Post-operative diagnosis: Same Pre-procedure pain: VAS= 6/10 Jonas Mendoza has been referred to [facility] for a Right Ischiogluteal bursa injection. Jonas was interviewed and the medical record reviewed. There were no medical, pharmacologic, radiographic or other structural contraindications to attempting a fluoroscopically-guided, contrast-enhanced, right ischiogluteal bursa injection. The risks, benefits, and potential side effects of this procedure were reviewed with the patient. Questions and concerns were addressed. After it was clear that Jonas was fully informed about the procedure, the printed consent form was signed by the patient and myself. Jonas was placed in the prone position on the fluoroscopy table and an automated blood pressure cuff, 3 lead EKG, and pulse oximeter were applied. The skin entry point for approaching the Right ischiogluteal bursa was identified under the most advantageous fluoroscopic view and marked. Following thorough Chlorhexadine preparation of the skin and draping with sterile surgical drapes, 2 mls of 1% lidocaine was infiltrated into the skin at the entry point and the surrounding subcutaneous tissues. Next, a 3.5 22G spinal needle was placed under fluoroscopic guidance into the Right Ischiogluteal bursa. Intra-bursa placement was confirmed by a clear bursagram resulting from the injection of 0.25ml of Omnipaque-240. Next, 1 ml of Depo- Medrol 40 mg/ml was injected intra- articularly with an initial reproduction of a significant component of the usual pain. This was followed with 1 ml of 1% Lidocaine. The needle was then removed without difficulty. (48 ml of Omnipaque-240 was wasted). Jonas's vital signs were stable throughout the procedure and were as recorded in nursing records. Follow up plans and appointments were discussed with Jonas. Post procedure instructions were given as documented in nursing records. Having met discharge criteria, Jonas was [facility] from the [facility]. COMMENTS: Post-procedure pain: VAS= 0/10. If the patient receives at least 50% improvement in pain and/or function for at least 3 months, this procedure can be repeated if needed. I personally performed this entire procedure. MOISÉS VIVAS DO, MPH ABPMR-subspecialty board certification in Pain Medicine [facility] [facility]
[2024-03-13 15:12] VITALS: BP 144/94; PULSE 78; RESP 11; O2SAT 96
[2024-03-13] MEDS: Nerve Block Tray 1 EACH MC (15:15)
[2024-03-13] MEDS: Omnipaque 240 MG/ML 50 ML BTL IJ (15:15)
[2024-03-13] MEDS: Bupivacaine 0.5% Pres-Free 10 ML VIAL IJ (15:15)
[2024-03-13] MEDS: methylPREDNISolone ACETATE 40 MG/ML VIAL IJ (15:16)
== END 2024-03-13 12:49 | disposition home or self-care (01) ==
LOC: PC 12:48
PROVIDERS: PCP Family Medicine; Visit Provider Preventive Medicine Occupational Medicine
DX: M70.71 Other bursitis of hip, right hip (principal)
CPT/HCPCS: 20610; 77002; J0665; J1010; Q9967

== ENCOUNTER 2024-03-27 11:21 | Outpatient (CLI) | payer MEDICAID, SELFPAY ==
--- NOTE | 2024-03-27 06:00 | DI.RAD_ITS ---
Exam(s) XR PAIN CLINIC FLUORO JOINT IN EXAM: XR PAIN CLINIC FLUORO JOINT IN CLINICAL HISTORY: DX: Left knee osteoarthritis TECHNIQUE: 2D and realtime digital imaging was performed. CONTRAST MATERIAL: Refer to procedure report. COMPARISON: No exams were available for comparison FINDINGS: Fluoroscopy was provided for Dr. Vivas during the performance of a left genicular radiofrequency abla tion. Please refer to the procedure report for complete details. Ka,r=3.81 mGy IMPRESSION: RADIATION DOSE DELIVERED: 0.0 0.0 0
[2024-03-27 12:56] VITALS: BP 131/84; PULSE 62; RESP 20; TEMP 36.7; O2SAT 98
[2024-03-27] MEDS: Midazolam 2 MG/2 ML VIAL IVP (13:15)
[2024-03-27] MEDS: fentaNYL 100 MCG/2 ML VIAL IVP (13:15)
[2024-03-27] MEDS: methylPREDNISolone ACETATE 40 MG/ML VIAL IJ (13:48)
[2024-03-27] MEDS: Nerve Block Tray 1 EACH MC (13:48)
[2024-03-27] MEDS: Lidocaine 2% Multi-Dose 20 ML VIAL IJ (13:48)
[2024-03-27] MEDS: Bupivacaine 0.5% Pres-Free 10 ML VIAL IJ (13:48)
[2024-03-27] MEDS: Lactated Ringers 500 ML 80 ML IV (13:49)
[2024-03-27 13:54] VITALS: BP 126/89; PULSE 61; RESP 16; O2SAT 98
--- NOTE | 2024-04-01 06:13 | PDOC.PAIN_ITS ---
Date of service: 03/27/24 Time of Service: 14:20 Pain Managment Procedure Note Procedure Note Procedure Note: PROCEDURE NOTE LEFT GENICULAR NERVE RADIOFREQUENCY ABLATION Date of Service: March 27, 2024 Patient: Jonas Mendoza Provider: Calvin Zamarripa DO, MPH Jonas Mendoza has been [facility] for Left genicular nerve radiofrequency ablation with the [employer] machine. Pre-operative diagnosis: Pain in left knee M25.562 Post-operative diagnosis: Same Pre-Procedure Pain: VAS=5/10 Comments: Previous genicular nerve blocks to the Left knee. PROCEDURE: 1. Superolateral genicular branch from the vastus lateralis 2. Superomedial genicular branch from the vastus medialis 3. Inferomedial genicular branch from the saphenous nerve 4. Terminal branch of the nerve vastus intermedius Jonas was interviewed and the medical record reviewed. There were no medical, pharmacologic, radiographic or other structural contraindications to attempting fluoroscopically guided Left genicular nerve radiofrequency ablation. Risks and potential side effects as well as potential benefit of the procedure were reviewed with Jonas Mendoza , and the patient's voiced concerns were addressed. After I believed that the patient was completely informed, the printed consent form was signed. Standard time-out procedure was performed. Jonas Mendoza was brought into brought to the procedure room and placed on the fluoroscopy table in a comfortable supine position and automated blood pressure cuff and pulse oximeter applied. A grounding pad was placed on the left ankle. The place for needle placement was obtained by manual palpation with radiographic confirmation. The skin entry points for approaching Left superolateral genicular nerve, the superomedial genicular nerve, nerve of the vastus intermedius and the inferomedial genicular was identified under the most advantageous fluoroscopic view and marked. Following thorough Chlorhexadine preparation of the skin and draping, 1% lidocaine infiltration of the skin entry point and subcutaneous tissues was accomplished using a 1.5 25G needle. Next, the 17G 50 mm radiofrequency cannula needle with a 4mm active tip was advanced to os at the location of the specific nerve roots (4) using fluoroscopic guidance. Next, motor testing was performed and no abnormal findings were found. Next, 1 cc of 2% Lidocaine was injected at each site after negative aspiration. The lesion was then created with 80 degrees Celsius for 2 minutes and 30 seconds each. 1/4 cc of Depo-Medrol (40 mg/cc) was then injected at each site followed by 1 cc of 0.5% Bupivacaine as the needle was withdrawn. There was no unusual discomfort expressed by Jonas. The needles were withdrawn without difficulty. Jonas was observed and was without hemodynamic, neurologic, or allergic reactions.? Fluoroscopic images were digitally archived. Jonas's vital signs were stable throughout the procedure and were as recorded in the docflowsheet by the nursing staff. If given, dosages of intravenous drugs for anxiolysis and analgesia were documented in MAR. POST PROCEDURE EVALUATION: IMPRESSION: 1. Medication given is documented in the MAR 2. Follow up plan: Jonas to contact [facility] needed. This procedure may be repeated if the patient achieves at least 50% improvement in pain and/or function for at least 6 months. 3. Estimated Blood Loss: <5ml 4. Fluoroscopy time: Documented in the EMR Follow up plans and appointments were discussed with Jonas. Post procedure instruction was given as documented in nursing documentation and having met discharge criteria, Jon[facility] was [facility] from the [facility]. COMMENTS: No apparent complications. Post-procedure pain: VAS= 4/10. Macdonald WJ1, Tal SJ, Tuan JG, Donny JG, Remi LORD, Park PH, Gilliam JW. Radiofrequency treatment relieves chronic knee osteoarthritis pain: a double-blind randomized controlled trial. Pain. 2010;152(3):481-7. doi: 10.1016/j.pain.2010.09.029. Radha S1, Kiran ON2, Peterson Y3, ?zl?delphine P2, Juventino U1, Hussain ?m?rl? I. Which one is more effective for the clinical treatment of chronic pain in knee osteoarthritis: radiofrequency neurotomy of the genicular nerves or intra- articular injection? Int J Rheum Dis. 2016 Jun 12. I personally completed the entire procedure. CALVIN ZAMARRIPA DO, MPH ABPM&R - Subspecialty board certification in Pain Medicine [facility] [facility]
== END 2024-03-27 11:22 | disposition home or self-care (01) ==
LOC: PC 11:21
PROVIDERS: PCP Student in an Organized Health Care Education/Training Program; Visit Provider Preventive Medicine Occupational Medicine
DX: M25.562 Pain in left knee (principal)
CPT/HCPCS: 64624; 77002; J0665; J1010; J2003; J2250; J3010

== ENCOUNTER 2024-07-03 13:32 | Outpatient (CLI) | payer MEDICAID, SELFPAY ==
[2024-07-03 14:17] VITALS: BP 106/78; PULSE 59; RESP 18; TEMP 36; O2SAT 99
[2024-07-03 14:58] VITALS: PULSE 62; RESP 11; O2SAT 97
[2024-07-03 15:00] VITALS: PULSE 57; RESP 12; O2SAT 100
[2024-07-03 15:07] VITALS: BP 113/89; PULSE 59; PULSE 63; RESP 12; O2SAT 100
--- NOTE | 2024-07-03 15:09 | DI.RAD_ITS ---
Exam(s) XR PAIN CLINIC FLUORO JOINT IN EXAM: XR PAIN CLINIC FLUORO JOINT IN CLINICAL HISTORY: Right Hip Bursitis TECHNIQUE: 2D and realtime digital imaging was performed. CONTRAST MATERIAL: Refer to procedure report. COMPARISON: No exams were available for comparison FINDINGS: Fluoroscopy was provided for Dr. Vivas during the performance of a right ischial gluteal bursal injec tion. Please refer to the procedure report for complete details. Ka,r=2.78 mGy IMPRESSION: RADIATION DOSE DELIVERED: 0.0 0.0 0
--- NOTE | 2024-07-03 15:10 | PDOC.PAIN_ITS ---
Date of service: 07/03/24 Time of Service: 15:10 Pain Managment Procedure Note Procedure Note Procedure Note: PROCEDURE NOTE RIGHT ISCHIOGLUTEAL BURSA INJECTION Date of Service: July 03, 2024 Patient: Jonas Mendoza Provider: Moisés Vivas DO, MPH COMMENTS: I previously evaluated the patient in the office and their symptoms in relation to the sacroiliac joint pain have remained the same. Pre-operative diagnosis: Right Ischiogluteal bursitis Post-operative diagnosis: Same Pre-procedure pain: VAS= 7/10 Jonas Mendoza has been referred to [facility] for a Right intra-bursal ischiogluteal bursa injection. Jonas was interviewed and the medical record reviewed. There were no medical, pharmacologic, radiographic or other structural contraindications to attempting a fluoroscopically-guided, contrast-enhanced, intra-bursal right ischiogluteal bursa injection. The risks, benefits, and potential side effects of this procedure were reviewed with the patient. Questions and concerns were addressed. After it was clear that Jonas was fully informed about the procedure, the printed consent form was signed by the patient and myself. Jonas was placed in the prone position on the fluoroscopy table and an automated blood pressure cuff, 3 lead EKG, and pulse oximeter were applied. The skin entry point for approaching the area of the Right ischiogluteal bursa was identified under the most advantageous fluoroscopic view and marked. Following thorough Chlorhexadine preparation of the skin and draping with sterile surgical drapes, 2 mls of 1% lidocaine was infiltrated into the skin at the entry point and the surrounding subcutaneous tissues. Next, a 3.5 25G spinal needle was placed under fluoroscopic guidance into the Right Ischiogluteal bursa. Placement was confirmed by a clear arthrogram resulting from the injection of 0.25ml of Omnipaque-240. Next, 1 ml of Depo- Medrol 40 mg/ml was injected intra-bursally with an initial reproduction of a significant component of the usual pain. This was followed with 1 ml of 1% Lidocaine. The needle was then removed without difficulty. (49 ml of Omnipaque-240 was wasted). Jonas's vital signs were stable throughout the procedure and were as recorded in nursing records. Follow up plans and appointments were discussed with Jonas. Post procedure instructions were given as documented in nursing records. Having met discharge criteria, Jonas was [facility] from the [facility]. COMMENTS: Post-procedure pain: VAS= 1/10. If the patient receives at least 50% improvement in pain and/or function for at least 3 months, this procedure can be repeated if needed. I personally performed this entire procedure. MOISÉS VIVAS DO, MPH ABPMR-subspecialty board certification in Pain Medicine [facility] [facility]
[2024-07-03] MEDS: Omnipaque 240 MG/ML 50 ML BTL IJ (15:14)
[2024-07-03] MEDS: methylPREDNISolone ACETATE 40 MG/ML VIAL IJ (15:15)
[2024-07-03] MEDS: Bupivacaine 0.5% Pres-Free 10 ML VIAL IJ (15:15)
[2024-07-03] MEDS: Nerve Block Tray 1 EACH MC (15:16)
== END 2024-07-03 13:33 | disposition home or self-care (01) ==
LOC: PC 13:32
PROVIDERS: PCP Student in an Organized Health Care Education/Training Program; Visit Provider Preventive Medicine Occupational Medicine
DX: M70.71 Other bursitis of hip, right hip (principal)
CPT/HCPCS: 20611; 77002; J0665; J1010; Q9967

== ENCOUNTER 2024-10-16 14:41 | Outpatient (CLI) | payer MEDICAID, SELFPAY ==
--- NOTE | 2024-10-16 06:00 | DI.RAD_ITS ---
Exam(s) XR PAIN CLINIC FLUORO JOINT IN EXAM: XR PAIN CLINIC FLUORO JOINT IN CLINICAL HISTORY: Dx: Right Hip Bursitis TECHNIQUE: 2D and realtime digital imaging was performed. CONTRAST MATERIAL: Refer to procedure report. COMPARISON: No exams were available for comparison FINDINGS: Fluoroscopy was provided for Dr. Vivas during the performance of a right ischial gluteal bursal injec tion. Please refer to the procedure report for complete details. Ka,r=1.9 mGy IMPRESSION: RADIATION DOSE DELIVERED: 0.0 0.0 0
[2024-10-16 15:27] VITALS: BP 113/99; PULSE 72; RESP 18; TEMP 36.6; O2SAT 98
[2024-10-16 16:04] VITALS: O2SAT 98
[2024-10-16] MEDS: Bupivacaine 0.5% Pres-Free 10 ML VIAL IJ (16:12)
[2024-10-16] MEDS: Omnipaque 240 MG/ML 50 ML BTL IJ (16:12)
[2024-10-16] MEDS: Nerve Block Tray 1 EACH MC (16:13)
[2024-10-16] MEDS: methylPREDNISolone ACETATE 40 MG/ML VIAL IJ (16:13)
--- NOTE | 2024-10-16 16:16 | PDOC.PAIN ---
Date of service: 10/16/24 Time of Service: 16:16 Pain Managment Procedure Note Procedure Note Procedure Note: PROCEDURE NOTE RIGHT ISCHIOGLUTEAL BURSA INJECTION Date of Service: October 16, 2024 Patient: Jonas Mendoza Provider: Moisés Vivas DO, MPH COMMENTS: He had >6 months of >50% relief with his last right ischiogluteal bursa injection Pre-operative diagnosis: Right Ischiogluteal bursitis - ICD 10 M70.71 Post-operative diagnosis: Same Pre-procedure pain: VAS= 6/10 Jonas Mendoza has been referred to [facility] for a Right Ischiogluteal bursa injection. Jonas was interviewed and the medical record reviewed. There were no medical, pharmacologic, radiographic or other structural contraindications to attempting a fluoroscopically-guided, contrast-enhanced, right ischiogluteal bursa injection. The risks, benefits, and potential side effects of this procedure were reviewed with the patient. Questions and concerns were addressed. After it was clear that Jonas was fully informed about the procedure, the printed consent form was signed by the patient and myself. Jonas was placed in the prone position on the fluoroscopy table and an automated blood pressure cuff, 3 lead EKG, and pulse oximeter were applied. The skin entry point for approaching the Right Ischiogluteal bursa was identified under the most advantageous fluoroscopic view and marked. Following thorough Chlorhexadine preparation of the skin and draping with sterile surgical drapes, 2 mls of 1% lidocaine was infiltrated into the skin at the entry point and the surrounding subcutaneous tissues. Next, a 3.5 25G spinal needle was placed under fluoroscopic guidance into the Right ischiogluteal bursa. Intra-bursal placement was confirmed by x-ray resulting from the injection of 0.25ml of Omnipaque-240. Next, 1 ml of Depo- Medrol 80 mg/ml was injected intra-articularly with an initial reproduction of a significant component of the usual pain. This was followed with 1 ml of 1% Lidocaine. The needle was then removed without difficulty. (49 ml of Omnipaque-240 was wasted). Jonas's vital signs were stable throughout the procedure and were as recorded in nursing records. Follow up plans and appointments were discussed with Jonas. Post procedure instructions were given as documented in nursing records. Having met discharge criteria, Jonas was [facility] from the [facility]. COMMENTS: Post-procedure pain: VAS= 1/10. If the patient receives at least 50% improvement in pain and/or function for at least 3 months, this procedure can be repeated if needed. I personally performed this entire procedure. MOISÉS VIVAS DO, MPH ABPMR-subspecialty board certification in Pain Medicine [facility] [facility]
== END 2024-10-16 14:42 | disposition home or self-care (01) ==
LOC: PC 14:42
PROVIDERS: PCP Student in an Organized Health Care Education/Training Program; Visit Provider Preventive Medicine Occupational Medicine
DX: M70.71 Other bursitis of hip, right hip (principal)
CPT/HCPCS: 20610; 77002; J0665; J1010; Q9967

== ENCOUNTER 2024-10-31 10:51 | Outpatient (CLI) | payer MEDICAID, SELFPAY ==
[2024-10-31] VITALS (13 sets, daily range): BP systolic 91–112; BP diastolic 53–83; PULSE 53–68; RESP 10–18; TEMP 36.5; O2SAT 98–100
[2024-10-31] MEDS: fentaNYL 100 MCG/2 ML VIAL IVP ×2 (12:17→12:32)
[2024-10-31] MEDS: Normal Saline Flush 10 ML SYR IVP ×2 (12:17→12:32)
[2024-10-31] MEDS: Midazolam 2 MG/2 ML VIAL IVP (12:17)
[2024-10-31] MEDS: Nerve Block Tray 1 EACH MC (12:22)
--- NOTE | 2024-10-31 12:48 | DI.RAD_ITS ---
Exam(s) XR PAIN CLINIC FLUORO JOINT IN EXAM: XR PAIN CLINIC FLUORO JOINT IN CLINICAL HISTORY: DX: Left Knee Osteoarthritis TECHNIQUE: 2D and realtime digital imaging was performed. CONTRAST MATERIAL: Refer to procedure report. COMPARISON: No exams were available for comparison FINDINGS: Fluoroscopy was provided for Dr. Vivas during the performance of a left genicular nerve radio frequen cy ablation. Please refer to the procedure report for complete details. Ka,r=2.87 mGy IMPRESSION: RADIATION DOSE DELIVERED: 0.0 0.0 0
--- NOTE | 2024-10-31 12:55 | PDOC.PAIN ---
Date of service: 10/31/24 Time of Service: 12:55 Pain Managment Procedure Note Procedure Note Procedure Note: PROCEDURE NOTE LEFT GENICULAR NERVE RADIOFREQUENCY ABLATION Date of Service: October 31, 2024 Patient: Jonas Mendoza Provider: Calvin Zamarripa DO, MPH Jonas Mendoza has been referred to the [facility] for Left genicular nerve radiofrequency ablation with the [employer] machine. Pre-operative diagnosis: Pain in left knee M25.562 Post-operative diagnosis: Same Pre-Procedure Pain: VAS=8/10 Comments: Previous genicular nerve blocks to the Left knee. PROCEDURE: 1. Superolateral genicular branch from the vastus lateralis 2. Superomedial genicular branch from the vastus medialis 3. Inferomedial genicular branch from the saphenous nerve 4. Terminal branch of the nerve vastus intermedius Jonas was interviewed and the medical record reviewed. There were no medical, pharmacologic, radiographic or other structural contraindications to attempting fluoroscopically guided Left genicular nerve radiofrequency ablation. Risks and potential side effects as well as potential benefit of the procedure were reviewed with Jonas Mendoza , and the patient's voiced concerns were addressed. After I believed that the patient was completely informed, the printed consent form was signed. Standard time-out procedure was performed. Jonas Mendoza was brought into brought to the procedure room and placed on the fluoroscopy table in a comfortable supine position and automated blood pressure cuff and pulse oximeter applied. A grounding pad was placed on the left ankle. The place for needle placement was obtained by manual palpation with radiographic confirmation. The skin entry points for approaching Left superolateral genicular nerve, the superomedial genicular nerve, nerve of the vastus intermedius and the inferomedial genicular was identified under the most advantageous fluoroscopic view and marked. Following thorough Chlorhexadine preparation of the skin and draping, 1% lidocaine infiltration of the skin entry point and subcutaneous tissues was accomplished using a 1.5 25G needle. Next, the 17G 50 mm radiofrequency cannula needle with a 4mm active tip was advanced to os at the location of the specific nerve roots (4) using fluoroscopic guidance. Next, motor testing was performed and no abnormal findings were found. Next, 1 cc of 2% Lidocaine was injected at each site after negative aspiration. The lesion was then created with 80 degrees Celsius for 2 minutes and 30 seconds each. 1/4 cc of Depo-Medrol (40 mg/cc) was then injected at each site followed by 1 cc of 0.5% Bupivacaine as the needle was withdrawn. There was no unusual discomfort expressed by Jonas. The needles were withdrawn without difficulty. Jonas was observed and was without hemodynamic, neurologic, or allergic reactions.? Fluoroscopic images were digitally archived. Jonas's vital signs were stable throughout the procedure and were as recorded in the docflowsheet by the nursing staff. If given, dosages of intravenous drugs for anxiolysis and analgesia were documented in MAR. POST PROCEDURE EVALUATION: IMPRESSION: 1. Medication given is documented in the MAR 2. Follow up plan: Jonas to contact [facility] needed. This procedure may be repeated if the patient achieves at least 50% improvement in pain and/or function for at least 6 months. 3. Estimated Blood Loss: <5ml 4. Fluoroscopy time: Documented in the EMR Follow up plans and appointments were discussed with Jonas. Post procedure instruction was given as documented in nursing documentation and having met discharge criteria, Jonas was discharged from the [facility]. This advanced procedure uses cooled radiofrequency energy to safely target the sensory nerves responsible for sending pain signals.1 A radiofrequency generator transmits a small current of Radiofrequency energy through an insulated electrode, or probe, placed within tissue. Ionic heating, produced by the friction of charged molecules, thermally deactivates the nerves responsible for sending pain signals to the brain. Radiofrequency energy heats and cools the tissue at the site of pain. Unlike other Radiofrequency procedures, Coolief circulates water through the device while heating nervous tissue to create a larger treatment area, increasing the opportunity to help with pain. This combination targets the pain-transmitting nerves without excessive heating, leading to pain relief. COMMENTS: No apparent complications. Post-procedure pain: VAS= 2/10. Macdonald WJ1, Tal SJ, Tuan JG, Donny JG, Khalil LORD, Park PH, Gilliam JW. Radiofrequency treatment relieves chronic knee osteoarthritis pain: a double-blind randomized controlled trial. Pain. 2010;152(3):481-7. doi: 10.1016/j.pain.2010.09.029. Radha S1, Kiran ON2, Peterson Y3, ?zl?lerden P2, Juventino U1, Hussain ?m?rl? I. Which one is more effective for the clinical treatment of chronic pain in knee osteoarthritis: radiofrequency neurotomy of the genicular nerves or intra-articular injection? Int J Rheum Dis. 2016 Jun 24. I personally completed the entire procedure. CALVIN ZAMARRIPA DO, MPH ABPM&R - Subspecialty board certification in Pain Medicine [facility]
[2024-10-31] MEDS: Bupivacaine 0.5% Pres-Free 10 ML VIAL IJ (12:56)
[2024-10-31] MEDS: Lidocaine 2% Multi-Dose 20 ML VIAL IJ (12:56)
[2024-10-31] MEDS: methylPREDNISolone ACETATE 40 MG/ML VIAL IJ (12:57)
== END 2024-10-31 10:52 | disposition home or self-care (01) ==
LOC: PC 10:51
PROVIDERS: PCP Student in an Organized Health Care Education/Training Program; Visit Provider Preventive Medicine Occupational Medicine
DX: M17.12 Unilateral primary osteoarthritis, left knee (principal)
CPT/HCPCS: 64624; 77002; J0665; J1010; J2003; J2250; J3010

== ENCOUNTER 2025-09-24 12:51 | Outpatient (CLI) | payer MEDICARE, MEDICAID, SELFPAY ==
[2025-09-24 13:38] VITALS: BP 110/76; PULSE 67; RESP 20; TEMP 37.2; O2SAT 98
--- NOTE | 2025-09-24 13:56 | PDOC.PAIN_ITS ---
Date of service: 09/24/25 Time of Service: 13:56 Pain Managment Procedure Note Procedure Note Procedure Note: PROCEDURE NOTE LEFT INTRA-ARTICULAR KNEE JOINT SYNVISC INJECTION Date of Service: September 24, 2025 Patient:Jonas Guerin? Provider:? Moisés Vivas DO, MPH Jonas Mendoza has been referred to the [facility] for LEFT intra- articular knee joint Synvisc-One injection. Pre-operative diagnosis: Knee Osteoarthritis ICD-10 M16.9 Post-operative diagnosis: Same Pre-procedure pain: VAS=7/10 COMMENTS: I previously evaluated him in the office Justinwas interviewed and the medical record was reviewed.? There were no medical, pharmacologic, radiographic or other structural contraindications to attempting fluoroscopically guided LEFT intra-articular knee joint injection.? Risks and expected side effects as well as potential benefit of the procedure were reviewed with Jonas, and the patient's voiced concerns were addressed.? The printed consent form was signed.? Standard time-out procedure was performed. Jonas was placed in the supine position on the fluoroscopy table and the pulse oximeter was applied. The skin entry point for approaching superolateral aspect of the LEFT patellafemoral area was identified under the most advantageous fluoroscopic view and marked. Following thorough Chlorhexadine preparation of the skin and draping, 1% lidocaine infiltration of the skin entry point and subcutaneous tissues was accomplished using a 1.5 25G needle. Next, the 1.5 25G needle was advanced to the center of the patella in a lateral to medial approach under fluoroscopic guidance into the LEFT knee joint. Intra-articular placement was confirmed by a clear arthrogram resulting from the injection of 1 ml Omnipaque 240. Next, One complete vial of Synvisc-One was injected into the left knee capsule followed by 2 mls of 1% Lidocaine. (49 mls of Omnipaque was wasted). There was no unusual discomfort expressed by Jonas. The needle was withdrawn without difficulty. Jonas was observed and was without hemodynamic, neurologic, or allergic reactions.? Fluoroscopic images were digitally archived. Jonas's vital signs were stable throughout the procedure and were as recorded in the docflowsheet by the nursing staff. If given, dosages of intravenous drugs for anxiolysis and analgesia were documented in MAR. Follow up plans and appointments were discussed with Jonas.? Post procedure instruction was given as documented in nursing documentation and having met discharge criteria, Jonas was [facility] from the [facility]. COMMENTS: No apparent complications. Post-procedure pain: VAS= 6/10. Jonas to contact [facility] as needed. If at least 50% improvement in pain and/or function for at least 6 months is achieved, this procedure can be repeated. I personally completed the entire procedure. MOISÉS VIVAS DO, MPH ABPM&R - Subspecialty board certification in Pain Medicine [facility] Coding Conscious Sedation used for procedure: No CPT Codes: Inj,Bursa/Tendon Major (not SI); Ischial Bursa - 31680 ([id number] ~G) Synvisc Fluoroscopic guidance (non spine inj.) - 58969 ([id number] ~G) Additional Codes: Date of Service () Diagnoses: Left knee osteoarthritis
--- NOTE | 2025-09-24 14:22 | DI.RAD_ITS ---
Exam(s) XR PAIN CLINIC FLUORO JOINT IN EXAM: XR PAIN CLINIC FLUORO JOINT IN CLINICAL HISTORY: DX: Left Knee Osteoarthritis. TECHNIQUE: Fluoroscopy was provided for the referring physician for guidance with performing pain clinic injection procedure. COMPARISON: No exams were available for comparison FINDINGS: Please see procedure note for details. Fluoro time: 7.4 seconds RADIATION DOSE DELIVERED: carlos alberto Lemon=0.4 mGy
[2025-09-24 14:24] VITALS: PULSE 73; O2SAT 98
[2025-09-24] MEDS: Hylan G-F 20 48 MG/6 ML SYR IU (14:26)
[2025-09-24] MEDS: Lidocaine 2% Pres-Free 5 ML VIAL IJ (14:26)
[2025-09-24] MEDS: Omnipaque 240 MG/ML 50 ML BTL IJ (14:26)
[2025-09-24] MEDS: Nerve Block Tray 1 EACH MC (14:26)
== END 2025-09-24 12:52 | disposition home or self-care (01) ==
LOC: PC 12:51
PROVIDERS: PCP Student in an Organized Health Care Education/Training Program; Visit Provider Preventive Medicine Occupational Medicine
DX: M25.562 Pain in left knee (principal); M17.12 Unilateral primary osteoarthritis, left knee
CPT/HCPCS: 20610; 77002; J7325; Q9967

== ENCOUNTER 2025-10-16 13:26 | Outpatient (CLI) | payer MEDICARE, MEDICAID, SELFPAY ==
[2025-10-16 13:40] VITALS: BP 99/68; PULSE 87; RESP 12; TEMP 36.7; O2SAT 95
[2025-10-16 15:13] VITALS: PULSE 93; O2SAT 97
[2025-10-16 15:20] VITALS: PULSE 87; O2SAT 97
--- NOTE | 2025-10-16 15:25 | DI.RAD_ITS ---
Exam(s) XR PAIN CLINIC FLUORO JOINT IN EXAM: XR PAIN CLINIC FLUORO JOINT IN CLINICAL HISTORY: DX: Right Hip Bursitis TECHNIQUE: 2D and realtime digital imaging was performed. CONTRAST MATERIAL: Refer to procedure report. COMPARISON: No exams were available for comparison FINDINGS: Fluoroscopy was provided for Dr. Vivas during the performance of a right ischial bursal injection. Please refer to the procedure report for complete details. Ka,r=2.1 mGy IMPRESSION: RADIATION DOSE DELIVERED: 0.0 0.0 0
[2025-10-16] MEDS: Omnipaque 240 MG/ML 50 ML BTL IJ (15:28)
--- NOTE | 2025-10-16 15:28 | PDOC.PAIN ---
Date of service: 10/16/25 Time of Service: 15:28 Pain Managment Procedure Note Procedure Note Procedure Note: PROCEDURE NOTE RIGHT ISCHIOGLUTEAL BURSA INJECTION Date of Service: October 16, 2025 Patient:Jonas Guerin? Provider:? Moisés Vivas DO, MPH Jonas Mendoza has [facility] for RIGHT Ischiogluteal bursa injection. Pre-operative diagnosis: Right ischiogluteal bursitis ICD-10 M70.71 Post-operative diagnosis: Same Pre-Procedure Pain: VAS= 8/10 COMMENTS: He had >10 months of >50% pain relief with his last right ischiogluteal bursa injection. Justinwas interviewed and the medical record was reviewed.? There were no medical, pharmacologic, radiographic or other structural contraindications to attempting fluoroscopically guided RIGHT intra-articular hip joint injection.? Risks and expected side effects as well as potential benefit of the procedure were reviewed with Jonas, and voiced concerns were addressed.? The printed consent form was signed.? Standard time-out procedure was performed. Jonas was placed in the lateral recumbant position on the fluoroscopy table with pulse oximeter applied. The skin entry point for approaching the right ischiogluteal bursa was identified under the most advantageous fluoroscopic view and marked. Following thorough Chlorhexadine preparation of the skin and draping, 1% lidocaine infiltration of the skin entry point and subcutaneous tissues was accomplished. Next a 22 gauge 3.5 inch spinal needle was placed under fluoroscopic guidance into the RIGHT ischiogluteal bursa Intra-bursa placement was confirmed by a clear bursagram resulting from the injection of 1 ml Omnipaque 240. 3 ml of 1 %Lidocaine and 80mg Depo-Medrol was injected intra-bursally with an initial reproduction of a significant component of the usual pain. 1 ml of 1% Lidocaine was then flushed through the needle and the needle was then removed without difficulty. (49 ml of Omnipaque was wasted). There was no unusual discomfort expressed by Jonas. The needle was withdrawn without difficulty. Jonas was observed and was without hemodynamic, neurologic, or allergic reactions.? Fluoroscopic images were digitally archived. Jonas's vital signs were stable throughout the procedure and were as recorded in the docflowsheet by the nursing staff. If given, dosages of intravenous drugs for anxiolysis and analgesia were documented in MAR. Follow up plans and appointments were discussed with Jonas. Post procedure instruction was given as documented in nursing documentation and having met discharge criteria, Jon[facility] was [facility] from the [facility]. COMMENTS: No apparent complications. Post-procedure pain: VAS= 2/10. Jonas to contact [facility] as needed. If at least 50% improvement in pain and/or function for at least 3 months is achieved, this procedure can be repeated. I personally completed the entire procedure. MOISÉS VIVAS DO, MPH [employer]BPM[employer]R - Subspecialty board certification in Pain Medicine [facility] Coding Conscious Sedation used for procedure: No CPT Codes: Fluoroscopic guidance (non spine inj.) - 14171 ([id number] ~G) Inj,Bursa/Tendon Major (not SI); Ischial Bursa - ([id number] ~G) Additional Codes: Date of Service () Diagnoses: Right ischiogluteal busitis
[2025-10-16] MEDS: Lidocaine 2% Pres-Free 5 ML VIAL IJ (15:29)
[2025-10-16] MEDS: Nerve Block Tray 1 EACH MC (15:29)
[2025-10-16] MEDS: methylPREDNISolone ACETATE 40 MG/ML VIAL IJ (15:29)
== END 2025-10-16 13:27 | disposition home or self-care (01) ==
LOC: PC 13:26
PROVIDERS: PCP Student in an Organized Health Care Education/Training Program; Visit Provider Preventive Medicine Occupational Medicine
DX: M25.551 Pain in right hip (principal); M70.71 Other bursitis of hip, right hip
CPT/HCPCS: 20610; 77002; J1010; Q9967